=== PATIENT | male | born 1990 | race Caucasian/White ===

== ENCOUNTER 2020-12-28 03:27 | Emergency (ER) | payer OTHER ==
[~2020-12-28] VITALS: Ht 175.3 cm; Wt 90.7 kg
[2020-12-28 03:31] VITALS: BP 128/84
== END 2020-12-28 03:47 | disposition home or self-care (01) ==
LOC: ER 03:38
DX: Z20.822 Contact with and (suspected) exposure to COVID-19 (principal)
CPT/HCPCS: 99283; C9803; U0003